=== PATIENT | female | born 1960 | race Caucasian/White ===

== ENCOUNTER 2024-07-05 17:12 | Inpatient (IN) ==
[2024-07-05 17:54] LABS: Basophils #(Absolute) Auto 0.1 (0.0-0.1); Basophils%(Percent) Auto 0.4 (0.1-0.85); Eosinophils#(Absolute)Auto 0.1 (0.0-0.2); Eosinophils%(Percent) Auto 0.8 % (0.4-2.8); Granulocytes % - Auto 86.3 % (47.8-71.3); Granulocytes#(Absolute)- Auto 12.9 (2.3-6.0); Hematocrit 45.8 % (35.9-46.7); Monocytes #(Absolute)- Auto 0.4 (1.1-3.1); Monocytes %(Percent)- Auto 2.8 % (3.6-9.8); Platelet Count 477 K/uL (152-353); White Blood Count 14.9 K/uL (4.3-9.3)
[2024-07-05 18:02] LABS: Potassium 3.2 mmol/L (3.6-5.2)
[2024-07-05] MEDS ORDERED: ONDANSETRON HCL/PF 4 MG/2 ML VIAL ONE (18:02)
[2024-07-05] MEDS ORDERED: 0.9 % SODIUM CHLORIDE 1000 ML 1,000 ML IV ONE (18:06)
[2024-07-05] MEDS: 0.9 % SODIUM CHLORIDE 1000 ML 1,000 ML IV STA (18:07)
[2024-07-05] MEDS: ONDANSETRON HCL/PF 4 MG/2 ML VIAL IVP ONE (18:07)
--- NOTE | 2024-07-05 18:17 | Emergency Department Note ---
HPI - Abdominal Pain General Chief Complaint: Abdominal Pain Stated Complaint: EPIGASTRIC PAIN Time Seen by Provider: 07/05/24 17:48 Source: patient and EMS Mode of arrival: ambulance Limitations: no limitations History of Present Illness HPI narrative: 63-year-old female presents to ER via EMS with complaint of upper abdominal and epigastric pain that radiates through to her back since midnight last night. Patient reports nausea and vomiting but denies diarrhea. MD elicited complaint: abdominal pain Pertinent past history: constipation, gastritis and past UTI Onset (ago): day(s) (1) Pain Consistency: constant Location: epigastric, LUQ and RUQ Severity: moderate Quality: cramping, aching and fullness Radiation: back Migration to: no migration Exacerbating factors: eating, vomiting and movement Relieving factors: rest Context: other (none) Associated symptoms: nausea and vomiting Treatments prior to arrival: other (none) Related Data Patient : No Patient lactating: No Home Medications Medication Instructions Recorded Confirmed temazepam 30 mg capsule 30 mg PO NIGHTLY PRN sleep 01/24/24 01/24/24 acetaminophen 300 mg-codeine 30 mg 1 tab PO Q6H PRN pain 01/25/24 01/25/24 tablet ehixznqvip-zsfatolwxriwx-ifrgqevn 1 tab PO Q6H PRN migraine headache 01/25/24 01/25/24 50 mg-325 mg-40 mg tablet cholecalciferol (vitamin D3) 1,250 50,000 unit PO Q7D 01/25/24 01/25/24 mcg (50,000 unit) capsule duloxetine 30 mg capsule,delayed 30 mg PO DAILY 01/25/24 01/25/24 release fluticasone propionate 50 1 spray intranasal DAILY 01/25/24 01/25/24 mcg/actuation nasal spray,suspension mometasone 200 mcg/actuation HFA 1 puff inhalation DAILY 01/25/24 01/25/24 aerosol inhaler (Asmanex HFA) omeprazole 40 mg capsule,delayed 40 mg PO DAILY 01/25/24 01/25/24 release primidone 50 mg tablet 50 mg PO DAILY 01/25/24 01/25/24 sertraline 100 mg tablet 100 mg PO DAILY 01/25/24 01/25/24 Allergies Allergy/AdvReac Type Severity Reaction Status Date / Time aspirin Allergy Verified 07/05/24 17:22 hydromorphone (From Dilaudid) Allergy Verified 07/05/24 17:22 Penicillins Allergy Verified 07/05/24 17:22 Review of Systems 2 Status of ROS 10 or more systems reviewed and unremark able except as noted in history and below Gastrointestinal Reports: abdominal pain, nausea, vomiting, bloating and feeling full early Musculoskeletal Reports: back pain Psychiatric Reports: anxiety PFSH PFSH Medical History Cataract Ovarian cyst Cholecystectomy planned GERD (gastroesophageal reflux disease) Migraine Tremor Unsteady gait Osteoporosis Asthma Depressed Surgical History History of delivery H/O detached retina repair H/O: hysterectomy Social History (Updated 12/22/23 @ 19:45 by Tonya Arevalo APRN) Smoking status: never smoker Within the past year, how often did you have a drink containing alcohol: never Within the past year, how often did you have six or more drinks on one occasion: never Score interpretation: A score less than 3 is consistent with normal alcohol consumption. Non-prescribed substance use: denies use What is your current living situation: I presently have a place to live Problems where you live: no known problems Highest level of school completed/degree received: high school Feel stressed/tense/nervous/anxious/difficulty sleeping: to some extent Life stressors: other (none) Life stressor details: Current medical condition Due to disability, difficulty making decisions: No Gender Identity: female Exam 2 Constitutional: normal general appearance, distress noted (moderate), abnormal body habitus (overweight), no limitations and alert Vital Signs - 24 hr 07/05/24 17:12 07/05/24 17:30 07/05/24 18:05 Temperature 97 F L Pulse Rate 102 H 94 H 95 H Respiratory Rate 18 18 18 Blood Pressure 118/60 117/60 100/70 Pulse Oximetry 99 99 99 Oxygen Delivery Me thod Room Air Room Air Room Air 07/05/24 18:31 07/05/24 19:00 07/05/24 19:31 Temperature Pulse Rate 82 86 84 Respiratory Rate 18 18 18 Blood Pressure 127/62 122/65 107/56 Pulse Oximetry 99 99 99 Oxygen Delivery Me thod Room Air Room Air Room Air HENMT: normocephalic, head/scalp atraumatic, hearing grossly normal bilaterally, external ears normal, external nose normal, oral mucous membranes normal, oropharynx normal, dentition normal and gingiva normal Eyes: PERRL, EOMs intact bilaterally, conjunctivae normal, no scleral icterus, no papilledema, normal visual rocha by confrontation, alignment normal, periorbital findings normal and no nystagmus Neck/C-Spine: visual inspection normal, trachea midline, cervical spine nontender, cervical full ROM noted and supple Lymph: no lymphadenopathy noted and no lymphedema noted Chest: inspection of chest normal, inspection of breast(s) abnormal (deferred) and palpation of breast(s) abnormal (deferred) Respiratory: breath sounds equal bilaterally, normal respiratory effort, clear to auscultation bilaterally, no wheezes, no rales, no retractions and no use of accessory muscles Cardiovascular: normal heart rate noted, regular rhythm noted, no gallop, no JVD, peripheral pulses 2+ throughout and no additional abnormal heart sounds Gastrointestinal: abdomen normal to inspection, abdomen soft to palpation, tender to palpation (moderate), (epigastric), (LUQ) and (RUQ), distended (mild distention), normoactive bowel sounds, no hepatosplenomegaly, no masses, no pulsatile mass, no ascites and rectal exam abnormal (deferred) Genitourinary: no CVA tenderness, bladder normal to palpation, vaginal abnormality noted (deferred) and cervical abnormality noted (deferred) Back/Pelvis: spine normal to inspection Extremities: normal to inspection, normal to palpation, no tenderness, full ROM, no joint enlargement and no deformity 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, no movement abnormality noted, no focal motor deficit noted, no sensory deficits noted, gait abnormality noted (unable to access), speech normal, coordination normal, no pronator drift noted, no fasciculations noted and GCS normal Psychiatry: Mental Status Exam documented within this Exam's Psych section mental status grossly normal, oriented x3, thought process normal, cooperative, affect normal, psychomotor activity normal and memory normal Feel stressed/tense/nervous/anxious/difficulty sleeping: to some extent Life stressors: other (none) Life stressor details: Current medical condition Due to disability, difficulty making decisions: No Skin: skin color normal, no rash, no lesions, no ecchymosis noted, no wounds, no lacerations, skin turgor normal, no jaundice, no petechiae, no mottling, nails normal and no alopecia Image: Body (4 view): 1. Pain Course Course Hospital Course: 63-year-old female presents to ER with complaint of upper abdominal pain epigastric pain since midnight last night via EMS has been evaluated by physical exam, CBC, CMP, magnesium, lipase, Troponin, urinalysis, CT scan of the abdomen pelvis with contrast, and plain film chest x-ray. Patient's lab work reveals leukocytosis with a white blood cell count of 14.9, hyponatremia with a sodium of 134, hypokalemia with a potassium of 3.2, hypercalcemia with a calcium of 10.7, hyperglycemia with a glucose of 180, and dehydration with elevated BUN/creatinine. Patient's CT of the abdomen and pelvis with contrast reveals a small bowel obstruction that is mild to intermediate and appears to be secondary to adhesions, chest x-ray reveals no acute cardiopulmonary process. Patient has had a NG tube placed with confirmation of placement by plain film chest x-ray, patient reports a relief in pain since NG tube has been placed. Patient will be admitted to the [facility] floor for observation and ongoing treatment of her small bowel obstruction, patient will be n.p.o. with fluid resuscitation and electrolyte replacement as necessary, pain management as needed, and nausea and vomiting control. Patient has been advised of admission status and has agreed with treatment plan. Vital Signs Vital signs: Vital Signs Temperature 97 F L 07/05/24 17:12 Pulse Rate 102 H 07/05/24 17:12 Respiratory Rate 18 07/05/24 17:12 Blood Pressure 118/60 07/05/24 17:12 Pulse Oximetry 99 07/05/24 17:12 Oxygen Delivery Method Room Air 07/05/24 17:12 Temperature 98.4 F 07/06/24 04:00 Pulse Rate 88 07/06/24 04:00 Respiratory Rate 17 07/06/24 04:00 Blood Pressure 124/64 07/06/24 04:00 Pulse Oximetry 95 07/06/24 04:00 Oxygen Delivery Method Room Air 07/06/24 04:00 MDM - Abdominal Pain MDM Narrative Medical decision making narrative: Medical Decision Making this patient involved physical exam, CBC, CMP, urinalysis, amylase, lipase, magnesium, troponin, EKG, plain film chest x-ray, tube confirmation x-ray, and CT of the abdomen pelvis with contrast. Differential Diagnosis Differential diagnosis: Likely abdominal pain, constipation, diverticulitis, gastroenteritis, pancreatitis and small bowel obstruction Lab Data Attestation: I reviewed the patient's lab results. Labs: Lab Results 07/05/24 Range/Units 17:40 WBC 14.9 H (4.3-9.3) K/uL RBC 5.2 (4.00-5.50) M/uL Hgb 15.5 (12.5-15.8) gm/dL Hct 45.8 (35.9-46.7) % MCV 88.0 (81.0-93.7) fl MCH 29.8 (27.6-32.2) pg MCHC 33.9 (33.1-35.3) g/dl RDW 14.0 (11.4-14.2) % Plt Count 477 H (152-353) K/uL MPV 7.8 (6.9-10.8) fl Gran % 86.3 H (47.8-71.3) % Lymph % (Auto) 9.7 L (20.0-43.0) % [place] % (Auto) 2.8 L (3.6-9.8) % Eos % (Auto) 0.8 (0.4-2.8) % Baso % (Auto) 0.4 (0.1-0.85) Lymph # (Auto) 1.4 (1.1-3.1) [place] # (Auto) 0.4 L (1.1-3.1) Eos # (Auto) 0.1 (0.0-0.2) Baso # (Auto) 0.1 (0.0-0.1) Absolute Gran (auto) 12.9 H (2.3-6.0) Sodium 135 L (136-145) mmol/L Potassium 3.2 L (3.6-5.2) mmol/L Chloride 95.0 L (98-107) mmol/L Carbon Dioxide 23 (21-32) mmol/L Anion Gap 17.0 H (4-14) mEq/L BUN 17 (7-18) mg/dL Creatinine 1.5 H (0.6-1.3) mg/dL Estimated GFR 38.9 (>59.9) Glucose 180 H (70-110) mg/dL Calcium 10.7 H (8.5-10.1) mg/dL Total Bilirubin 0.55 (0.0-1.0) mg/dL AST 15 (15-37) U/L ALT 17 L (30-65) U/L Alkaline Phosphatase 85 (50-136) U/L Troponin I High Sens 14.20 (4.0-60.4) ng/L Total Protein 8.4 H (6.4-8.2) g/dL Albumin 4.2 (3.4-5.0) g/dL Amylase 44 (25-115) U/L Lipase 19.0 (16.0-77.0) U/L Imaging Data Imaging ordered: Chest x-ray and CT scan - abdomen Attestation: I have reviewed the pertinent imaging results. Radiologist's impression: EXAM: CHEST HISTORY: CHEST PAINCHEST PAIN; COMPARISON: None. TECHNIQUE: Frontal view of the chest was submitted for interpretation. FINDINGS: The cardiomediastinal silhouette is within normal limits. Lungs show no focal consolidation, pneumothorax, or pleural fluid. IMPRESSION: No acute cardiopulmonary process. THIS IS AN ELECTRONICALLY VERIFIED FINAL REPORT 07/05/2024 7:41 PM - Electronically signed by Tod Marie MD EXAM: CT ABDOMEN PELVIS W CON HISTORY: Upper abd painUpper abd pain; Extravasation did occur. ER was notified. COMPARISON: CT lumbar spine from December 22, 2023 TECHNIQUE: Axial CT images of the abdomen and pelvis were obtained after the administration of IV contrast and reformatted into coronal and sagittal planes for further evaluation. Radiation dose: 839.6 mGy-cm total DLP FINDINGS: Lung bases are clear. Stomach appears normal. Solid visceral organs of the upper abdomen are unremarkable. Status post cholecystectomy with pneumobilia in the left hepatic lobe. Left renal cysts. Otherwise, unremarkable appearance of the kidneys and ureters. Unremarkable appearance of the urinary bladder. Status post hysterectomy. Multiple loops of moderately distended fluid-filled small bowel in the upper abdomen. Transition from dilated to decompressed small bowel in the left mid abdomen as seen on axial images 50-60. Remainder of the small bowel is decompressed. Unremarkable appearance of the decompressed large bowel. No evidence of acute appendicitis. No pneumoperitoneum. No significant fluid collection. No adenopathy. No acute osseous abnormality. Chronic pars defects at L5 with grade 1 anterolisthesis. Severe degenerative disc disease at L5-S1. Status post vertebroplasty at L1. IMPRESSION: Mild to intermediate grade mechanical small bowel obstruction which occurs in the left mid abdomen; likely secondary to adhesions. THIS IS AN ELECTRONICALLY VERIFIED FINAL REPORT 07/05/2024 7:20 PM - Electronically signed by Michael Zhang MD ECG Data Attestation: I have reviewed the pertinent ECG results. Interpretation: Sinus rhythm rate 91 Short IN interval RR 654 IN 90 P axis -61 QRS -5 T 45 Discharge Plan Discharge Patient Disposition: Admitted As Observation Condition: Stable Clinical Impression: Small bowel obstruction, Abdominal pain, Dehydration, Hypokalemia, Hyponatremia, Hypercalcemia, Hyperglycemia Interventions: ED Discharge Assessment Last Done: 07/05/24 21:30 ED Discharge Vital Sign Last Done: 07/05/24 21:30 Emergency Department Charge Sheet Last Done: 07/05/24 21:50 Time of Disposition: 20:30 Discharge Date/Time: 07/05/24 21:30
[2024-07-05] MEDS ORDERED: ACETAMINOPHEN 1000 MG/100 ML 1,000 MG/100 ML IV.SOLN IV PRN (20:59)
[2024-07-05] MEDS: CIPROFLOXACIN 400 MG/200ML-D5W 400 MG/200 ML PIGGYBACK IV SCH (23:23)
[2024-07-05] MEDS: KETOROLAC 30 MG/ML INJ VIAL IVP PRN (23:23)
[2024-07-05] MEDS: MEPERIDINE HCL/PF 25 MG/ML SYRINGE IVP PRN (23:35)
[2024-07-05] MEDS: ONDANSETRON HCL/PF 4 MG/2 ML VIAL INJ PRN (23:36)
[2024-07-05] MEDS: diphenhydrAMINE HCL 50 MG/ML VIAL ONE (23:55)
[2024-07-06] MEDS: POTASSIUM CHLORIDE IV SCH (01:59)
[2024-07-06] MEDS: [UNRECOGNIZED DRUG - OTHER] IV SCH (01:59)
[2024-07-06] MEDS: diphenhydrAMINE HCL 50 MG/ML VIAL INJ ONE (02:03)
[2024-07-06 05:52] LABS: Basophils #(Absolute) Auto 0.1 (0.0-0.1); Basophils%(Percent) Auto 0.5 (0.1-0.85); Eosinophils%(Percent) Auto 0.2 % (0.4-2.8); Granulocytes % - Auto 75.5 % (47.8-71.3); Granulocytes#(Absolute)- Auto 9.5 (2.3-6.0); Mean Corpuscular Volume 88.4 fl (81.0-93.7); Monocytes #(Absolute)- Auto 1.2 (1.1-3.1); Monocytes %(Percent)- Auto 9.3 % (3.6-9.8); Platelet Count 431 K/uL (152-353); White Blood Count 12.5 K/uL (4.3-9.3)
[2024-07-06 05:55] LABS: Specific Gravity Urine 1.015 (1.001-1.035); Urine Appearance CLEAR (CLEAR); Urine Blood NEGATIVE (NEG - TRACE); Urine Color AMBER (STRAW/YELL.); Urine Urobilinogen Normal (NORMAL)
[2024-07-06 06:27] LABS: Potassium 3.4 mmol/L (3.6-5.2)
[2024-07-06] MEDS: PANTOPRAZOLE SODIUM 40 MG VIAL IVP SCH (08:10)
[2024-07-06] MEDS: diphenhydrAMINE HCL 25 MG CAP PO ONE (09:36)
[2024-07-06] MEDS: CIPROFLOXACIN 400 MG/200ML-D5W 400 MG/200 ML PIGGYBACK IV SCH (09:36)
--- NOTE | 2024-07-06 10:03 | History & Physical Report ---
H&P: HPI History of Present Illness Chief complaint: SMALL BOWEL OBSTRUCTION,LEUKOCYTOSIS,HYPOKALEMIA,H Narrative: Patient is pleasant 63 year old female here for nausea, vomiting, and epigastric pain that radiates to back for [address] abd revealed small bowel obstruction. She has NGT which is returning green contents. She reports relief of pain and nausea today. Denies passing gas or bowel movement. Denies any hematemesis, hematuria, no heamtochezia or melena. No fever, chills, night sweats, headache s, dizziness, or blurred vision, no chest pain, cough or sob. No diarrhea. Review of Systems Status of ROS 10 or more systems reviewed and unremark able except as noted in history and below Gastrointestinal Reports: abdominal pain, nausea, vomiting, bloating and feeling full early Musculoskeletal Reports: back pain Psychiatric Reports: anxiety [facility] Medical History (Updated 07/06/24 @ 10:12 by Estephania Alvarez NP) Nausea & vomiting Hypomagnesemia Hypokalemia Cataract Ovarian cyst Cholecystectomy planned GERD (gastroesophageal reflux disease) Migraine Tremor Unsteady gait Osteoporosis Asthma Depressed Surgical History History of delivery H/O detached retina repair H/O: hysterectomy Social History Smoking status: never smoker Within the past year, how often did you have a drink containing alcohol: never Within the past year, how often did you have six or more drinks on one occasion: never Score interpretation: A score less than 3 is consistent with normal alcohol consumption. Non-prescribed substance use: denies use What is your current living situation: I presently have a place to live Problems where you live: no known problems Highest level of school completed/degree received: high school Feel stressed/tense/nervous/anxious/difficulty sleeping: to some extent Life stressors: other (none) Life stressor details: Current medical condition Due to disability, difficulty making decisions: No Gender Identity: female Meds Home Medications and Allergies Home Medications Medication Instructions Recorded Confirmed Type temazepam 30 mg capsule 30 mg PO NIGHTLY PRN sleep 01/24/24 01/24/24 History acetaminophen 300 mg-codeine 30 mg 1 tab PO Q6H PRN pain 01/25/24 01/25/24 History tablet kpnlieuhzw-fkndeoqqvbhuj-rxkckqxz 1 tab PO Q6H PRN migraine headache 01/25/24 01/25/24 History 50 mg-325 mg-40 mg tablet cholecalciferol (vitamin D3) 1,250 50,000 unit PO Q7D 01/25/24 01/25/24 History mcg (50,000 unit) capsule duloxetine 30 mg capsule,delayed 30 mg PO DAILY 01/25/24 01/25/24 History release fluticasone propionate 50 1 spray intranasal DAILY 01/25/24 01/25/24 History mcg/actuation nasal spray,suspension mometasone 200 mcg/actuation HFA 1 puff inhalation DAILY 01/25/24 01/25/24 History aerosol inhaler (Asmanex HFA) omeprazole 40 mg capsule,delayed 40 mg PO DAILY 01/25/24 01/25/24 History release primidone 50 mg tablet 50 mg PO DAILY 01/25/24 01/25/24 History sertraline 100 mg tablet 100 mg PO DAILY 01/25/24 01/25/24 History Allergies Allergy/AdvReac Type Severity Reaction Status Date / Time aspirin Allergy Verified 07/05/24 17:22 hydromorphone (From Dilaudid) Allergy Verified 07/05/24 17:22 Penicillins Allergy Verified 07/05/24 17:22 ciprofloxacin (From Cipro) AdvReac Mild Redness of Verified 07/06/24 06:11 Skin meperidine (From Demerol) AdvReac Mild ITCHING Verified 07/06/24 06:11 Exam Constitutional: normal general appearance, no apparent distress, average body habitus, no limitations and alert Vital Signs - 24 hr 07/05/24 17:12 07/05/24 17:30 07/05/24 18:05 Temperature 97 F L Pulse Rate 102 H 94 H 95 H Pulse Rate [Brachi al] Respiratory Rate 18 18 18 Blood Pressure 118/60 117/60 100/70 Blood Pressure [Le ft Arm] Pulse Oximetry 99 99 99 Oxygen Delivery Me thod Room Air Room Air Room Air 07/05/24 18:31 07/05/24 19:00 07/05/24 19:31 Temperature Pulse Rate 82 86 84 Pulse Rate [Brachi al] Respiratory Rate 18 18 18 Blood Pressure 127/62 122/65 107/56 Blood Pressure [Le ft Arm] Pulse Oximetry 99 99 99 Oxygen Delivery Me thod Room Air Room Air Room Air 07/05/24 21:30 07/05/24 22:17 07/05/24 23:47 Temperature 97 F L 98.4 F 97.8 F Pulse Rate 84 Pulse Rate [Brachi al] 86 85 Respiratory Rate 18 17 17 Blood Pressure 107/56 Blood Pressure [Le ft Arm] 131/64 128/71 Pulse Oximetry 99 99 100 Oxygen Delivery Me thod Room Air Room Air 07/06/24 04:00 07/06/24 08:00 Temperature 98.4 F 98.5 F Pulse Rate Pulse Rate [Brachi al] 88 91 H Respiratory Rate 17 19 Blood Pressure Blood Pressure [Le ft Arm] 124/64 106/51 Pulse Oximetry 95 95 Oxygen Delivery Me thod Room Air Room Air HENMT: normocephalic and head/scalp atraumatic Eyes: EOMs intact bilaterally, conjunctivae normal and no scleral icterus Neck/C-Spine: visual inspection normal and trachea midline Lymph: no lymphadenopathy noted and no lymphedema noted Chest: inspection of chest normal Respiratory: breath sounds equal bilaterally, normal respiratory effort, clear to auscultation bilaterally, no wheezes, no rales, no use of accessory muscles and chest percussion normal Cardiovascular: normal heart rate noted, regular rhythm noted, no gallop, no rub, no murmur and no JVD Gastrointestinal: abdomen normal to inspection, abdomen soft to palpation, normoactive bowel sounds (no bowel sounds auscultated) and no ascites Genitourinary: deferred Back/Pelvis: spine normal to inspection Extremities: normal to inspection, normal to palpation, no tenderness and full ROM Neurology: no movement abnormality noted and speech normal Psychiatry: mental status grossly normal, oriented x3, thought process normal, cooperative and affect normal Skin: skin color normal, no rash and no lesions Assessment and Plan Assessment and Plan (1) Small bowel obstruction: Code(s): K56.609 - Unspecified intestinal obstruction, unspecified as to partial versus complete obstruction (2) Pain: Code(s): R52 - Pain, unspecified (3) Tremor: Code(s): R25.1 - Tremor, unspecified (4) Nausea & vomiting: Qualifiers: Vomiting type: unspecified Qualified Code(s): R11.2 - Nausea with vomiting, unspecified Code(s): R11.2 - Nausea with vomiting, unspecified Plan Continue NGT to CHILEL NPO NS @ 125/hr I&O's to monitor urine output May need surgical consult if no gas or stool passage in next 48 hours. HOLD PO meds for now. PRN Meds: Morphine Tylenol Ketorolac Zofran Protonix Promethazine Results Labs Labs: CBC 07/05/24 07/06/24 Range/Units 17:40 05:30 WBC 14.9 H 12.5 H (4.3-9.3) K/uL RBC 5.2 5.0 (4.00-5.50) M/uL Hgb 15.5 14.9 (12.5-15.8) gm/dL Hct 45.8 44.0 (35.9-46.7) % Plt Count 477 H 431 H (152-353) K/uL Gran % 86.3 H 75.5 H (47.8-71.3) % Lymph % (Auto) 9.7 L 14.5 L (20.0-43.0) % [place] % (Auto) 2.8 L 9.3 (3.6-9.8) % Eos % (Auto) 0.8 0.2 L (0.4-2.8) % Baso % (Auto) 0.4 0.5 (0.1-0.85) Lymph # (Auto) 1.4 1.8 (1.1-3.1) [place] # (Auto) 0.4 L 1.2 (1.1-3.1) Eos # (Auto) 0.1 0.0 (0.0-0.2) Baso # (Auto) 0.1 0.1 (0.0-0.1) Absolute Gran (auto) 12.9 H 9.5 H (2.3-6.0) CMP 07/05/24 07/06/24 17:40 05:30 Sodium 135 L 137 Potassium 3.2 L 3.4 L Chloride 95.0 L 96.0 L Carbon Dioxide 23 28 BUN 17 25 H Creatinine 1.5 H 1.9 H Glucose 180 H 117 H Calcium 10.7 H 10.5 H Liver Function 07/05/24 07/06/24 Range/Units 17:40 05:30 Total Bilirubin 0.55 0.53 (0.0-1.0) mg/dL AST 15 16 (15-37) U/L ALT 17 L 14 L (30-65) U/L Alkaline Phosphatase 85 75 (50-136) U/L Albumin 4.2 4.1 (3.4-5.0) g/dL Urine 07/05/24 04:57 Urine Color [place] Urine Appearance Clear Ur Specific [place] 1.015 Urine Protein 1+ Urine Glucose (UA) Normal
[2024-07-06] MEDS: 0.9 % SODIUM CHLORIDE 1000 ML 1,000 ML IV SCH (19:36)
[2024-07-06] MEDS: MORPHINE SULFATE 2 MG/ML CARTRIDGE IV PRN (20:03)
[2024-07-06] MEDS: diphenhydrAMINE HCL 50 MG/ML VIAL ONE (20:21)
[2024-07-06] MEDS: PROMETHAZINE HCL 25 MG in 0.9 % SODIUM CHLORIDE 50 ML IV PRN (23:31)
[2024-07-07 05:14] LABS: Basophils%(Percent) Auto 0.3 (0.1-0.85); Eosinophils#(Absolute)Auto 0.2 (0.0-0.2); Eosinophils%(Percent) Auto 1.4 % (0.4-2.8); Granulocytes % - Auto 75.6 % (47.8-71.3); Granulocytes#(Absolute)- Auto 11.4 (2.3-6.0); Hematocrit 45.7 % (35.9-46.7); Mean Corpuscular Volume 93.6 fl (81.0-93.7); Monocytes #(Absolute)- Auto 1.4 (1.1-3.1); Monocytes %(Percent)- Auto 9.1 % (3.6-9.8); Platelet Count 388 K/uL (152-353)
--- NOTE | 2024-07-07 09:55 | Progress Note ---
Progress Note: Subjective Subjective Interval history: Patient continues to have some nausea. Continues CHILEL suction NGT. Exam Constitutional: normal general appearance, no apparent distress, average body habitus, no limitations and alert Vital Signs - 24 hr 07/06/24 11:49 07/06/24 16:00 07/06/24 20:05 Temperature 98.4 F 98.4 F 97.8 F Pulse Rate [Brachi al] 73 95 H 88 Respiratory Rate 19 19 18 Blood Pressure [Le ft Arm] 116/63 120/76 119/45 Pulse Oximetry 95 93 L 93 L Oxygen Delivery Me thod Room Air Room Air Room Air 07/06/24 23:49 07/07/24 03:42 07/07/24 08:00 Temperature 98.5 F 97.9 F 98.1 F Pulse Rate [Brachi al] 93 H 80 88 Respiratory Rate 18 18 19 Blood Pressure [Le ft Arm] 122/71 93/50 134/62 Pulse Oximetry 96 95 95 Oxygen Delivery Me thod Room Air Room Air Room Air HENMT: normocephalic, head/scalp atraumatic, hearing grossly normal bilaterally, external ears normal, external nose normal, oral mucous membranes normal, oropharynx normal, dentition normal and gingiva normal Eyes: PERRL, EOMs intact bilaterally, conjunctivae normal, no scleral icterus, no papilledema, normal visual rocha by confrontation, alignment normal, periorbital findings normal and no nystagmus Neck/C-Spine: visual inspection normal, trachea midline, cervical spine nonte nder, cervical full ROM noted and supple Lymph: no lymphadenopathy noted and no lymphedema noted Chest: inspection of chest normal, inspection of breast(s) abnormal (deferred) and palpation of breast(s) abnormal (deferred) Respiratory: breath sounds equal bilaterally, normal respiratory effort, clear to auscultation bilaterally, no wheezes, no rales, no retractions, no use of accessory muscles and chest percussion normal Cardiovascular: normal heart rate noted, regular rhythm noted, no gallop, no rub, no murmur, no JVD, peripheral pulses 2+ throughout and no additional abnormal heart sounds Gastrointestinal: abdomen normal to inspection, abdomen soft to palpation, tender to palpation (moderate), (epigastric), (LUQ) and (RUQ), distended (mild distention), normoactive bowel sounds (hypoactive BS), no hepatosplenomegaly, no masses, no pulsatile mass, no ascites and rectal exam abnormal (deferred) Genitourinary: no CVA tenderness, bladder normal to palpation, vaginal abnormality noted (deferred) and cervical abnormality noted (deferred) deferred Back/Pelvis: spine normal to inspection Extremities: normal to inspection, normal to palpation, no tenderness, full ROM, no joint enlargement and no deformity 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, no movement abnormality noted, no focal motor deficit noted, no sensory deficits noted, gait abnormality noted (unable to access), speech normal, coordination normal, no pronator drift noted, no fasciculations noted and GCS normal Psychiatry: Mental Status Exam documented within this Exam's Psych section mental status grossly normal, oriented x3, thought process normal, cooperative, affect normal, psychomotor activity normal and memory normal Skin: skin color normal, no rash, no lesions, no ecchymosis noted, no wounds, no lacerations, skin turgor normal, no jaundice, no petechiae, no mottling, nails normal and no alopecia Progress Note: Objective Labs Labs: CBC 07/07/24 Range/Units 04:58 WBC 15.0 H (4.3-9.3) K/uL RBC 4.9 (4.00-5.50) M/uL Hgb 14.6 (12.5-15.8) gm/dL Hct 45.7 (35.9-46.7) % Plt Count 388 H (152-353) K/uL Gran % 75.6 H (47.8-71.3) % Lymph % (Auto) 13.6 L (20.0-43.0) % [place] % (Auto) 9.1 (3.6-9.8) % Eos % (Auto) 1.4 (0.4-2.8) % Baso % (Auto) 0.3 (0.1-0.85) Lymph # (Auto) 2.0 (1.1-3.1) [place] # (Auto) 1.4 (1.1-3.1) Eos # (Auto) 0.2 (0.0-0.2) Baso # (Auto) 0.0 (0.0-0.1) Absolute Gran (auto) 11.4 H (2.3-6.0) Urine 07/05/24 04:57 Urine Color Nolvia Urine Appearance Clear Ur Specific [place] 1.015 Urine Protein 1+ Urine Glucose (UA) Normal Progress Note: A&P Assessment and Plan (1) Small bowel obstruction: (2) Pain: (3) Tremor: (4) Nausea & vomiting: Qualifiers: Vomiting type: unspecified Qualified Code(s): R11.2 - Nausea with vomiting, unspecified Plan Continue NGT to CHILEL NPO IVF I&O's to monitor urine output May need surgical consult if no gas or stool passage in next 48 hours. HOLD PO meds for now. PRN Meds: Morphine Tylenol Ketorolac Zofran Protonix Promethazine Fall Risk Details Parmar Fall Scale Risk Level: Moderate Fall Risk Current Medications: Current Medications Acetaminophen (Acetaminophen 1000 Mg/100 Ml) 1,000 mg in 100 mls @ 400 mls/hr IV Q6H PRN PRN Reason: Pain Promethazine HCl 25 mg/ Sodium (Chloride) 51 mls @ 200 mls/hr IV Q8H PRN PRN Reason: Nausea And Vomiting Last Infusion: 07/07/24 00:33 Dose: Infused Potassium Chloride/Sodium Chloride (Potassium Cl 20 Meq/1,000ml-Ns) 20 meq in 1,000 mls @ 83 mls/hr IV CONT [facility] Last Admin: 07/07/24 00:42 Dose: 83 mls/hr Ketorolac Tromethamine (Ketorolac 30 Mg/Ml Inj Vial) 15 mg IVP Q6H PRN PRN Reason: Moderate Pain SCALE 5-7 Stop: 07/10/24 20:58 Last Admin: 07/07/24 08:44 Dose: 15 mg Morphine Sulfate (Morphine Sulfate 2 Mg/Ml Cartridge) 2 mg IV Q4H PRN PRN Reason: Severe Pain SCALE 8-10 Last Admin: 07/07/24 03:03 Dose: 2 mg Ondansetron HCl (Ondansetron Hcl/Pf 4 Mg/2 Ml Vial) 4 mg INJ Q6H PRN PRN Reason: Nausea And Vomiting Last Admin: 07/06/24 20:03 Dose: 4 mg Pantoprazole Sodium (Pantoprazole Sodium 40 Mg Vial) 40 mg IVP DAILY [facility] Last Admin: 07/07/24 08:44 Dose: 40 mg Time Spent With Patient Time: Total time spent is greater than 50% in coordination of care (as documented) at patient's floor/unit and/or counseling patient:40 Time with patient: greater than 35 minutes
[2024-07-07] MEDS: diphenhydrAMINE HCL 50 MG/ML VIAL INJ ONE (15:51)
[2024-07-07] MEDS: DEXTROSE 50 % 25 GM/50 ML SYRINGE INJ ONE ×2 (20:21→20:25)
[2024-07-07] MEDS ORDERED: MORPHINE SULFATE 2 MG/ML CARTRIDGE IV ONE (20:46)
[2024-07-08 05:18] LABS: Basophils #(Absolute) Auto 0.1 (0.0-0.1); Basophils%(Percent) Auto 0.4 (0.1-0.85); Eosinophils#(Absolute)Auto 0.3 (0.0-0.2); Eosinophils%(Percent) Auto 2.6 % (0.4-2.8); Granulocytes#(Absolute)- Auto 10.3 (2.3-6.0); Hematocrit 38.1 % (35.9-46.7); Mean Corpuscular Volume 91.2 fl (81.0-93.7); Monocytes #(Absolute)- Auto 1.2 (1.1-3.1); Monocytes %(Percent)- Auto 9.4 % (3.6-9.8); Platelet Count 264 K/uL (152-353); White Blood Count 13.1 K/uL (4.3-9.3)
[2024-07-08] MEDS: LORazepam 2 MG/ML VIAL IVP ONE (07:06)
[2024-07-08 08:03] LABS: Potassium 4.4 mmol/L (3.6-5.2)
[2024-07-08] MEDS ORDERED: 0.9 % SODIUM CHLORIDE 1000 ML 1,000 ML IV SCH (09:00)
[2024-07-08] MEDS: DEXTROSE 5 %-0.45 % SOD CHLORD 1,000 ML IV SCH (09:49)
[2024-07-08] MEDS: METOCLOPRAMIDE HCL 5 MG in 0.9 % SODIUM CHLORIDE 50 ML IVP SCH (09:50)
[2024-07-08] MEDS ORDERED: MORPHINE SULFATE 2 MG/ML CARTRIDGE IV PRN ×2 (10:00)
--- NOTE | 2024-07-08 10:19 | Progress Note ---
Progress Note: Subjective Subjective Interval history: Ms. Arias is doing better today. Abdominal pain is minimal to nothing but she has not passed gas or stool. She does have significant amount in her NGT. Vitals have been stable glucose has dropped into the 60s several times in the last 24hrs. WBC still elevated 13.1. Exam Constitutional: normal general appearance, no apparent distress, average body habitus, no limitations and alert Vital Signs - 24 hr 07/07/24 11:37 07/07/24 16:23 07/07/24 19:54 Temperature 98.2 F 98.4 F 97.9 F Pulse Rate [Brachi al] 85 74 92 H Respiratory Rate 17 18 17 Blood Pressure [Le ft Arm] 113/71 119/72 148/59 Pulse Oximetry 96 100 92 L Oxygen Delivery Me thod Room Air Room Air Room Air 07/07/24 23:41 07/08/24 03:50 07/08/24 08:01 Temperature 98.1 F 98.8 F 98.8 F Pulse Rate [Brachi al] 90 91 H 89 Respiratory Rate 18 18 19 Blood Pressure [Le ft Arm] 125/58 141/70 98/66 Pulse Oximetry 97 96 96 Oxygen Delivery Me thod Room Air Room Air Room Air HENMT: normocephalic, head/scalp atraumatic, hearing grossly normal bilaterally, external ears normal, external nose normal, oral mucous membranes normal, oropharynx normal, dentition normal and gingiva normal Eyes: PERRL, EOMs intact bilaterally, conjunctivae normal, no scleral icterus, no papilledema, normal visual rocha by confrontation, alignment normal, periorbital findings normal and no nystagmus Neck/C-Spine: visual inspection normal, trachea midline, cervical spine nontender, cervical full ROM noted and supple Lymph: no lymphadenopathy noted and no lymphedema noted Chest: inspection of chest normal, inspection of breast(s) abnormal (deferred) and palpation of breast(s) abnormal (deferred) Respiratory: breath sounds equal bilaterally, normal respiratory effort, clear to auscultation bilaterally, no wheezes, no rales, no retractions, no use of accessory muscles and chest percussion normal Cardiovascular: normal heart rate noted, regular rhythm noted, no gallop, no rub, no murmur, no JVD, peripheral pulses 2+ throughout and no additional abnormal heart sounds Gastrointestinal: abdomen normal to inspection, abdomen soft to palpation, nontender to palpation, nondistended (mild distention), normoactive bowel sounds (hypoactive BS), no hepatosplenomegaly, no masses, no pulsatile mass, no ascites and normal rectal exam (deferred) Genitourinary: no CVA tenderness, bladder normal to palpation, vaginal abnormality noted (deferred) and cervical abnormality noted (deferred) deferred Back/Pelvis: spine normal to inspection Extremities: normal to inspection, normal to palpation, no tenderness, full ROM, no joint enlargement and no deformity 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, no movement abnormality noted, no focal motor deficit noted, no sensory deficits noted, gait normal, speech normal, coordination normal, no pronator drift noted, no fasciculations noted and GCS normal Psychiatry: Mental Status Exam documented within this Exam's Psych section mental status grossly normal, oriented x3, thought process normal, cooperative, affect normal, psychomotor activity normal and memory normal Skin: skin color normal, no rash, no lesions, no ecchymosis noted, no wounds, no lacerations, skin turgor normal, no jaundice, no petechiae, no mottling, nails normal and no alopecia Progress Note: Objective Labs Labs: CBC 07/08/24 Range/Units 04:40 WBC 13.1 H (4.3-9.3) K/uL RBC 4.2 (4.00-5.50) M/uL Hgb 12.2 L (12.5-15.8) gm/dL Hct 38.1 (35.9-46.7) % Plt Count 264 (152-353) K/uL Gran % 78.0 H (47.8-71.3) % Lymph % (Auto) 9.6 L (20.0-43.0) % [place] % (Auto) 9.4 (3.6-9.8) % Eos % (Auto) 2.6 (0.4-2.8) % Baso % (Auto) 0.4 (0.1-0.85) Lymph # (Auto) 1.3 (1.1-3.1) [place] # (Auto) 1.2 (1.1-3.1) Eos # (Auto) 0.3 H (0.0-0.2) Baso # (Auto) 0.1 (0.0-0.1) Absolute Gran (auto) 10.3 H (2.3-6.0) CMP 07/08/24 04:40 Sodium 146 H Potassium 4.4 Chloride 109.0 H Carbon Dioxide 25 BUN 31 H Creatinine 1.0 Glucose 71 Calcium 8.7 Liver Function 07/08/24 Range/Units 04:40 Total Bilirubin 0.49 (0.0-1.0) mg/dL AST 21 (15-37) U/L ALT 13 L (30-65) U/L Alkaline Phosphatase 48 L (50-136) U/L Albumin 3.0 L (3.4-5.0) g/dL Urine 07/05/24 04:57 Urine Color Nolvia Urine Appearance Clear Ur Specific [place] 1.015 Urine Protein 1+ Urine Glucose (UA) Normal Imaging Abdominal x-ray: Radiologist's impression: [place] [address] XRay Report Signed Patient: Alma Rosa Arias MR#: [id number] : 1960 Acct:[id number] Age/Sex: 63 / F ADM Date: 07/05/24 Loc: [place] 1109-[address]: Estephania Alvarez NP Ordering Physician: Lance Delaney NP Date of Service: 07/08/24 Procedure(s): XR KUB Accession Number(s): [id number] cc: Estephania Alvarez NP; Lance Delaney NP~ EXAM: KUB HISTORY: Follow-up SBO COMPARISON: CT abdomen 07/05/2024 FINDINGS: Supine views of abdomen are technically limited; abdominal/intestinal detail is suboptimal. There is no obvious intestinal dilatation, mass, calcification or visceral enlargement. Tip of the nasogastric tube is in the right upper quadrant. IMPRESSION: No significant ileus or intestinal obstruction demonstrated although see above technical limitation. Repeat examination is recommended if symptoms warrant. THIS IS AN ELECTRONICALLY VERIFIED FINAL REPORT 07/08/2024 1:20 PM - Electronically signed by En Ansari MD Dictated By: En Ansari MD Signed By: 07/08/24 1320 DD/ 0734 TD/TT: 07/08/24 0839 Medicare Compliance Auditor: Progress Note: A&P Assessment and Plan (1) Small bowel obstruction: (2) Pain: (3) Tremor: (4) Nausea & vomiting: Qualifiers: Vomiting type: unspecified Qualified Code(s): R11.2 - Nausea with vomiting, unspecified Plan Continue NGT to CHILEL NPO Change to D5 1/2NS @100ml/hr KUB today HOLD PO meds for now. CBC BMP daily Levofloacin 750mg IV qday Flagyl 500mg IV q8hrs Reglan 5mg [id number] Lactulose 20gm OGT now and BID PRN Meds: Morphine Tylenol Ketorolac Zofran Protonix Promethazine Fall Risk Details Parmar Fall Scale Risk Level: Moderate Fall Risk Current Medications: Current Medications Acetaminophen (Acetaminophen 1000 Mg/100 Ml) 1,000 mg in 100 mls @ 400 mls/hr IV Q6H PRN PRN Reason: Pain Promethazine HCl 25 mg/ Sodium (Chloride) 51 mls @ 200 mls/hr IV Q8H PRN PRN Reason: Nausea And Vomiting Last Infusion: 07/07/24 23:33 Dose: Infused Dextrose/Sodium Chloride (Dextrose 5%-0.45% Nacl Iv Soln) 1,000 mls @ 100 mls/hr IV CONT CLARA Last Admin: 07/08/24 09:49 Dose: 100 mls/hr Metoclopramide HCl 5 mg/ (Sodium Chloride) 51 mls @ 200 mls/hr IVP Q6H [facility] Last Infusion: 07/08/24 10:11 Dose: Infused Ketorolac Tromethamine (Ketorolac 30 Mg/Ml Inj Vial) 15 mg IVP Q6H PRN PRN Reason: Moderate Pain SCALE 5-7 Stop: 07/10/24 20:58 Last Admin: 07/08/24 06:11 Dose: 15 mg Morphine Sulfate (Morphine Sulfate 2 Mg/Ml Cartridge) 2 mg IV Q4H PRN PRN Reason: Severe Pain SCALE 8-10 Last Admin: 07/07/24 20:51 Dose: 2 mg Ondansetron HCl (Ondansetron Hcl/Pf 4 Mg/2 Ml Vial) 4 mg INJ Q6H PRN PRN Reason: Nausea And Vomiting Last Admin: 07/07/24 15:35 Dose: 4 mg Pantoprazole Sodium (Pantoprazole Sodium 40 Mg Vial) 40 mg IVP DAILY [facility] Last Admin: 07/08/24 09:28 Dose: 40 mg Time Spent With Patient Time: Total time spent is greater than 50% in coordination of care (as documented) at patient's floor/unit and/or counseling patient:
[2024-07-08] MEDS: CIPROFLOXACIN 400 MG/200ML-D5W 400 MG/200 ML PIGGYBACK IV SCH (11:52)
[2024-07-08] MEDS: METRONIDAZOLE 500 MG/100ML-NS 500 MG/100 ML PIGGYBACK IV SCH (12:11)
[2024-07-08] MEDS: LEVOFLOXACIN/D5W 750 MG/150 ML 750 MG/150 ML PIGGYBACK IV SCH (12:55)
[2024-07-08] MEDS: LACTULOSE 20 GM/30 ML SOLUTION PO ONE (15:02)
[2024-07-08] MEDS: LACTULOSE 20 GM/30 ML SOLUTION ONE (15:12)
[2024-07-08] MEDS: LACTULOSE 20 GM/30 ML SOLUTION PO SCH (20:08)
[2024-07-08] MEDS ORDERED: ALPRAZolam 0.5 MG TABLET PO SCH (21:00)
[2024-07-08] MEDS: diphenhydrAMINE HCL 50 MG/ML VIAL INJ ONE (22:57)
[2024-07-09 04:55] LABS: Basophils%(Percent) Auto 0.3 (0.1-0.85); Eosinophils#(Absolute)Auto 0.4 (0.0-0.2); Eosinophils%(Percent) Auto 3.2 % (0.4-2.8); Granulocytes % - Auto 75.8 % (47.8-71.3); Granulocytes#(Absolute)- Auto 10.5 (2.3-6.0); Hematocrit 36.8 % (35.9-46.7); Monocytes #(Absolute)- Auto 1.3 (1.1-3.1); Monocytes %(Percent)- Auto 9.6 % (3.6-9.8); Platelet Count 279 K/uL (152-353); White Blood Count 13.8 K/uL (4.3-9.3)
[2024-07-09 05:11] LABS: Potassium 3.5 mmol/L (3.6-5.2)
[2024-07-09] MEDS ORDERED: BUTALB/ACETAMINOPHEN/CAFFEINE 1 EACH TABLET PO PRN (09:15)
[2024-07-09] MEDS ORDERED: TEMAZEPAM 15 MG CAPSULE PO PRN (09:15)
[2024-07-09] MEDS: METOCLOPRAMIDE HCL 5 MG in 0.9 % SODIUM CHLORIDE 50 ML IVP SCH (09:39)
[2024-07-09] MEDS: SERTRALINE HCL 50 MG TABLET PO SCH (10:14)
[2024-07-09] MEDS: DULOXETINE HCL 30 MG CAPSULE.DR PO SCH (10:14)
[2024-07-09] MEDS: PRIMIDONE 50 MG TABLET PO SCH (10:15)
[2024-07-09] MEDS: [UNRECOGNIZED DRUG - OTHER] INH SCH (10:15)
[2024-07-09] MEDS: MOMETASONE INH SCH (10:15)
--- NOTE | 2024-07-09 12:42 | Progress Note ---
Progress Note: Subjective Subjective Interval history: Ms. Arias is doing well this morning and did have a bowel movement last night. We will resume a diet clear liquids. WBC still remain elevated no definite cause. Vitals within normal limits. Exam Constitutional: normal general appearance, no apparent distress, average body habitus, no limitations and alert Vital Signs - 24 hr 07/08/24 16:00 07/08/24 20:00 07/09/24 00:00 Temperature 99.3 F 98.3 F 98.5 F Pulse Rate [Brachi al] 92 H 103 H 89 Respiratory Rate 19 21 20 Blood Pressure [Le ft Arm] 149/75 139/72 134/61 Pulse Oximetry 95 95 96 Oxygen Delivery Me thod Room Air Room Air Room Air 07/09/24 04:00 07/09/24 07:45 07/09/24 12:00 Temperature 98.8 F 98.9 F Pulse Rate [Brachi al] 85 87 89 Respiratory Rate 23 17 20 Blood Pressure [Le ft Arm] 143/61 131/70 122/65 Pulse Oximetry 95 96 96 Oxygen Delivery Me thod Room Air Room Air Room Air HENMT: normocephalic, head/scalp atraumatic, hearing grossly normal bilaterally, external ears normal, external nose normal, oral mucous membranes normal, oropharynx normal, dentition normal and gingiva normal Eyes: PERRL, EOMs intact bilaterally, conjunctivae normal, no scleral icterus, no papilledema, normal visual rocha by confrontation, alignment normal, periorbital findings normal and no nystagmus Neck/C-Spine: visual inspection normal, trachea midline, cervical spine nontender, cervical full ROM noted and supple Lymph: no lymphadenopathy noted and no lymphedema noted Chest: inspection of chest normal, inspection of breast(s) abnormal (deferred) and palpation of breast(s) abnormal (deferred) Respiratory: breath sounds equal bilaterally, normal respiratory effort, clear to auscultation bilaterally, no wheezes, no rales, no retractions, no use of accessory muscles and chest percussion normal Cardiovascular: normal heart rate noted, regular rhythm noted, no gallop, no rub, no murmur, no JVD, peripheral pulses 2+ throughout and no additional abnormal heart sounds Gastrointestinal: abdomen normal to inspection, abdomen soft to palpation, nontender to palpation, nontender to percussion, nondistended (mild distention), normoactive bowel sounds (hypoactive BS), no hepatosplenomegaly, no masses, no pulsatile mass, no ascites and normal rectal exam (deferred) Genitourinary: no CVA tenderness, bladder normal to palpation, vaginal abnormality noted (deferred) and cervical abnormality noted (deferred) deferred Back/Pelvis: spine normal to inspection Extremities: normal to inspection, normal to palpation, no tenderness, full ROM, no joint enlargement and no deformity 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, no movement abnormality noted, no focal motor deficit noted, no sensory deficits noted, gait normal, speech normal, coordination normal, no pronator drift noted, no fasciculations noted and GCS normal Psychiatry: Mental Status Exam documented within this Exam's Psych section mental status grossly normal, oriented x3, thought process normal, cooperative, affect normal, psychomotor activity normal and memory normal Skin: skin color normal, no rash, no lesions, no ecchymosis noted, no wounds, no lacerations, skin turgor normal, no jaundice, no petechiae, no mottling, nails normal and no alopecia Progress Note: Objective Labs Labs: CBC 07/09/24 Range/Units 04:35 WBC 13.8 H (4.3-9.3) K/uL RBC 4.1 (4.00-5.50) M/uL Hgb 12.2 L (12.5-15.8) gm/dL Hct 36.8 (35.9-46.7) % Plt Count 279 (152-353) K/uL Gran % 75.8 H (47.8-71.3) % Lymph % (Auto) 11.1 L (20.0-43.0) % [place] % (Auto) 9.6 (3.6-9.8) % Eos % (Auto) 3.2 H (0.4-2.8) % Baso % (Auto) 0.3 (0.1-0.85) Lymph # (Auto) 1.5 (1.1-3.1) [place] # (Auto) 1.3 (1.1-3.1) Eos # (Auto) 0.4 H (0.0-0.2) Baso # (Auto) 0.0 (0.0-0.1) Absolute Gran (auto) 10.5 H (2.3-6.0) CMP 07/09/24 04:35 Sodium 144 Potassium 3.5 L Chloride 106.0 Carbon Dioxide 28 BUN 22 H Creatinine 0.9 Glucose 100 Calcium 8.9 Liver Function 07/09/24 Range/Units 04:35 Total Bilirubin 0.83 (0.0-1.0) mg/dL AST 37 (15-37) U/L ALT 27 L (30-65) U/L Alkaline Phosphatase 56 (50-136) U/L Albumin 2.9 L (3.4-5.0) g/dL Urine 07/05/24 04:57 Urine Color Nolvia Urine Appearance Clear Ur Specific [place] 1.015 Urine Protein 1+ Urine Glucose (UA) Normal Imaging Abdominal x-ray: Radiologist's impression: [place] [address] XRay Report Signed Patient: Alma Rosa Arias MR#: [id number] : 1960 Acct:[id number] Age/Sex: 63 / F ADM Date: 07/05/24 Loc: [place] 1109-[address]: Estephania Alvarez NP Ordering Physician: Lance Delaney NP Date of Service: 07/08/24 Procedure(s): XR KUB Accession Number(s): [id number] cc: Estephania Alvarez NP; Lance Delaney NP~ EXAM: KUB HISTORY: Follow-up SBO COMPARISON: CT abdomen 07/05/2024 FINDINGS: Supine views of abdomen are technically limited; abdominal/intestinal detail is suboptimal. There is no obvious intestinal dilatation, mass, calcification or visceral enlargement. Tip of the nasogastric tube is in the right upper quadrant. IMPRESSION: No significant ileus or intestinal obstruction demonstrated although see above technical limitation. Repeat examination is recommended if symptoms warrant. THIS IS AN ELECTRONICALLY VERIFIED FINAL REPORT 07/08/2024 1:20 PM - Electronically signed by En Ansari MD Dictated By: En Ansari MD Signed By: 07/08/24 1320 DD/ 0734 TD/TT: 07/08/24 5702 Measurement Psychologist: Progress Note: A&P Assessment and Plan (1) Small bowel obstruction: (2) Pain: (3) Tremor: (4) Nausea & vomiting: Qualifiers: Vomiting type: unspecified Qualified Code(s): R11.2 - Nausea with vomiting, unspecified Plan D/C NGT Advance diet to clears then full Change to D5 1/2NS @100ml/hr Resume PO meds CBC BMP daily Levofloacin 750mg IV qday Flagyl 500mg IV q8hrs Reglan 5mg [id number] D/C Lactulose 20g BID PRN Meds: Morphine Tylenol Ketorolac Zofran Protonix Promethazine Fall Risk Details Parmar Fall Scale Risk Level: Moderate Fall Risk Current Medications: Current Medications Acetaminophen (Acetaminophen 325 Mg Tablet) 650 mg PO Q6H PRN PRN Reason: Fever OF 100.5 OR GREATER Acetaminophen/Butalbital/Caffeine (Butalb/Acetaminophen/Caffeine 1 Each Tablet) 1 each PO Q6H PRN PRN Reason: migraine headache Duloxetine HCl (Duloxetine Hcl 30 Mg Capsule.Dr) 30 mg PO DAILY [facility] Last Admin: 07/09/24 10:14 Dose: 30 mg Acetaminophen (Acetaminophen 1000 Mg/100 Ml) 1,000 mg in 100 mls @ 400 mls/hr IV Q6H PRN PRN Reason: Pain Promethazine HCl 25 mg/ Sodium (Chloride) 51 mls @ 200 mls/hr IV Q8H PRN PRN Reason: Nausea And Vomiting Last Infusion: 07/08/24 20:26 Dose: Infused Dextrose/Sodium Chloride (Dextrose 5%-0.45% Nacl Iv Soln) 1,000 mls @ 100 mls/hr IV CONT [facility] Last Admin: 07/09/24 10:15 Dose: Not Given Metronidazole (Metronidazole 500 Mg/100ml-Ns) 500 mg in 100 mls @ 100 mls/hr IV Q8H [facility] Last Admin: 07/09/24 12:16 Dose: 100 mls/hr Levofloxacin/Dextrose ([id number] 750 Mg/150 Ml) 750 mg in 150 mls @ 75 mls/hr IV Q24H [facility] Last Admin: 07/09/24 12:17 Dose: 75 mls/hr Metoclopramide HCl 5 mg/ (Sodium Chloride) 51 mls @ 200 mls/hr IVP Q8H [facility] Last Admin: 07/09/24 09:39 Dose: Not Given Ketorolac Tromethamine (Ketorolac 30 Mg/Ml Inj Vial) 15 mg IVP Q6H PRN PRN Reason: Moderate Pain SCALE 5-7 Stop: 07/10/24 20:58 Last Admin: 07/08/24 19:25 Dose: 15 mg Morphine Sulfate (Morphine Sulfate 2 Mg/Ml Cartridge) 2 mg IV Q4H PRN PRN Reason: Severe Pain SCALE 8-10 Last Admin: 07/09/24 01:13 Dose: 2 mg Non-Formulary Medication (Ipratropium [place]) 2 spray INH BID [facility] Non-Formulary Medication (Mometasone [Asmanex Hfa]) 1 puff INH DAILY [facility] Last Admin: 07/09/24 10:15 Dose: Not Given Ondansetron HCl (Ondansetron Hcl/Pf 4 Mg/2 Ml Vial) 4 mg INJ Q6H PRN PRN Reason: Nausea And Vomiting Last Admin: 07/07/24 15:35 Dose: 4 mg Pantoprazole Sodium (Pantoprazole Sodium 40 Mg Vial) 40 mg IVP DAILY [facility] Last Admin: 07/09/24 08:09 Dose: 40 mg Primidone (Primidone 50 Mg Tablet) 50 mg PO DAILY [facility] Last Admin: 07/09/24 10:15 Dose: 50 mg Sertraline HCl (Sertraline Hcl 50 Mg Tablet) 100 mg PO DAILY [facility] Last Admin: 07/09/24 10:14 Dose: 100 mg Temazepam (Temazepam 15 Mg Capsule) 30 mg PO NIGHTLY PRN PRN Reason: sleep Trazodone HCl (Trazodone Hcl 50 Mg Tablet) 50 mg PO BEDTIME [facility] Time Spent With Patient Time: Total time spent is greater than 50% in coordination of care (as documented) at patient's floor/unit and/or counseling patient:
[2024-07-09] MEDS: ACETAMINOPHEN 325 MG TABLET PO PRN (13:13)
[2024-07-09] MEDS: TRAZODONE HCL 50 MG TABLET PO SCH (20:04)
[2024-07-09] MEDS: FAMOTIDINE 20 MG TABLET PO SCH (20:04)
[2024-07-09] MEDS: [UNRECOGNIZED DRUG - REMARK] INH SCH (21:57)
[2024-07-10 06:05] LABS: Potassium 3.1 mmol/L (3.6-5.2)
[2024-07-10 06:43] LABS: Hematocrit 38.5 % (35.9-46.7); Mean Corpuscular Volume 89.6 fl (81.0-93.7); Platelet Count 272 K/uL (152-353); White Blood Count 10.8 K/uL (4.3-9.3)
[2024-07-10 06:44] LABS: Basophils #(Absolute) Auto 0.1 (0.0-0.1); Basophils%(Percent) Auto 0.5 (0.1-0.85); Eosinophils#(Absolute)Auto 0.5 (0.0-0.2); Granulocytes % - Auto 73.6 % (47.8-71.3); Granulocytes#(Absolute)- Auto 7.9 (2.3-6.0); Monocytes #(Absolute)- Auto 0.9 (1.1-3.1); Monocytes %(Percent)- Auto 8.2 % (3.6-9.8)
[2024-07-10 08:47] VITALS: BP 95/74; PULSE 87; RESP 19; TEMP 98.3
[2024-07-10] MEDS: POTASSIUM CHLORIDE 20 MEQ TAB.ER.PRT PO ONE (09:19)
[2024-07-10] MEDS: POTASSIUM CHLORIDE 20 MEQ TAB.ER.PRT ONE (09:21)
--- NOTE | 2024-07-10 09:45 | Discharge Summary ---
DS: Providers Provider Date of admission: 07/05/24 21:00 Primary care physician: Nithya Orourke NP DS: Diagnosis Discharge Diagnosis (1) Small bowel obstruction: (2) Pain: (3) Tremor: (4) Nausea & vomiting: Qualifiers: Vomiting type: unspecified Qualified Code(s): R11.2 - Nausea with vomiting, unspecified DS: Summary Hospital Course Hospital Course: Ms. Arias was admitted on 07/05/24 from the ED with complaint of abdominal pain. Work up showed elevated at 13 on admit. Potassium slightly low at 3.2. CT of abdoment was conducted and partial small bowel obstruction was found. NGT was inserted to LIS and continued until 07/08 as output and abdominal pain decreased. She was started on levaquin and flagyl for leukocytosis, reglan and lactulose for SBO. Pain resolved, patient was advanced to liquid, then regular diet. Leukocytosis began resolving by discharge. Patient discharged on 07/10/24 to follow up with PCP in 1 week Status at Discharge Functional status at discharge: independent ambulation Overall status at discharge: patient is back to baseline Time Spent with Patient Time attestation: Total time spent providing and/or coordinating discharge services:35 min Exam Constitutional: normal general appearance, no apparent distress, average body habitus, no limitations and alert Vital Signs - 24 hr 07/09/24 12:00 07/09/24 14:19 07/09/24 16:00 Temperature 98.6 F 99.1 F Pulse Rate [Brachi al] 89 90 Respiratory Rate 20 16 Blood Pressure [Le ft Arm] 122/65 116/71 Pulse Oximetry 96 96 Oxygen Delivery Me thod Room Air Room Air 07/09/24 19:38 07/10/24 00:00 07/10/24 03:59 Temperature 98.2 F 97.6 F 98.1 F Pulse Rate [Brachi al] 66 79 90 Respiratory Rate 16 19 18 Blood Pressure [Le ft Arm] 129/74 126/62 135/79 Pulse Oximetry 95 97 95 Oxygen Delivery Me thod Room Air Room Air Room Air 07/10/24 08:00 Temperature 98.3 F Pulse Rate [Brachi al] 87 Respiratory Rate 19 Blood Pressure [Le ft Arm] 95/74 Pulse Oximetry 95 Oxygen Delivery Me thod Room Air HENMT: normocephalic, head/scalp atraumatic, hearing grossly normal bilaterally, external ears normal, external nose normal, oral mucous membranes normal, oropharynx normal, dentition normal and gingiva normal Eyes: PERRL, EOMs intact bilaterally, conjunctivae normal, no scleral icterus, no papilledema, normal visual rocha by confrontation, alignment normal, periorbital findings normal and no nystagmus Neck/C-Spine: visual inspection normal, trachea midline, cervical spine nontender, cervical full ROM noted and supple Lymph: no lymphadenopathy noted and no lymphedema noted Chest: inspection of chest normal, inspection of breast(s) abnormal (deferred) and palpation of breast(s) abnormal (deferred) Respiratory: breath sounds equal bilaterally, normal respiratory effort, clear to auscultation bilaterally, no wheezes, no rales, no retractions, no use of accessory muscles and chest percussion normal Cardiovascular: normal heart rate noted, regular rhythm noted, no gallop, no rub, no murmur, no JVD, peripheral pulses 2+ throughout and no additional abnormal heart sounds Gastrointestinal: abdomen normal to inspection, abdomen soft to palpation, nontender to palpation, nontender to percussion, nondistended (mild distention), normoactive bowel sounds (hypoactive BS), no hepatosplenomegaly, no masses, no pulsatile mass, no ascites and normal rectal exam (deferred) Genitourinary: no CVA tenderness, bladder normal to palpation, vaginal abnormality noted (deferred) and cervical abnormality noted (deferred) deferred Back/Pelvis: spine normal to inspection Extremities: normal to inspection, normal to palpation, no tenderness, full ROM, no joint enlargement and no deformity 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: 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, no movement abnormality noted, no focal motor deficit noted, no sensory deficits noted, gait normal, speech normal, coordination normal, no pronator drift noted, no fasciculations noted and GCS normal Psychiatry: Mental Status Exam documented within this Exam's Psych section mental status grossly normal, oriented x3, thought process normal, cooperative, affect normal, psychomotor activity normal and memory normal Skin: skin color normal, no rash, no lesions, no ecchymosis noted, no wounds, no lacerations, skin turgor normal, no jaundice, no petechiae, no mottling, nails normal and no alopecia DS: Data Data Completed and Pending Labs on day of discharge: Labs from last 24 hours 07/10/24 05:20 WBC 10.8 H RBC 4.3 Hgb 12.9 Hct 38.5 MCV 89.6 MCH 30.0 MCHC 33.5 RDW 14.0 Plt Count 272 MPV 7.4 Gran % 73.6 H Lymph % (Auto) 12.7 L [place] % (Auto) 8.2 Eos % (Auto) 5.0 H Baso % (Auto) 0.5 Lymph # (Auto) 1.4 [place] # (Auto) 0.9 L Eos # (Auto) 0.5 H Baso # (Auto) 0.1 Absolute Gran (auto) 7.9 H Sodium 140 Potassium 3.1 L Chloride 102.0 Carbon Dioxide 30 Anion Gap 8.0 BUN 13 Creatinine 0.8 Estimated GFR 82.7 Glucose 135 H Calcium 8.7 Discharge Plan Discharge Disposition: Home, Self-Care Condition: Stable Discharge Medications: New metoclopramide HCl [Reglan] 5 mg tablet 5 mg PO Q8H Qty: 12 0RF levofloxacin 750 mg tablet 750 mg PO DAILY Qty: 5 0RF metronidazole 500 mg tablet 500 mg PO Q8H Qty: 15 0RF Continued trazodone 50 mg tablet 50 mg PO BEDTIME Patient Comments: TAKE 1 TABLET BY MOUTH ONCE DAILY FOR INSOMNIA ipratropium bromide 21 mcg (0.03 %) spray,non-aerosol 2 spray INTRANASAL BID Patient Comments: USE 2 SPRAY(S) IN EACH NOSTRIL TWICE DAILY temazepam 30 mg capsule 30 mg PO NIGHTLY PRN (Reason: sleep) Patient Comments: TAKE 1 CAPSULE BY MOUTH ONCE DAILY FOR INSOMNIA cholecalciferol (vitamin D3) 1,250 mcg (50,000 unit) capsule 50,000 unit PO Q7D Patient Comments: TAKE 1 CAPSULE BY MOUTH ONCE A WEEK FOR VITAMIN D DEF duloxetine 30 mg capsule,delayed release(DR/EC) 30 mg PO DAILY Patient Comments: TAKE 1 CAPSULE BY MOUTH ONCE DAILY FOR DEPRESSION AND ANXIETY omeprazole 40 mg capsule,delayed release(DR/EC) 40 mg PO DAILY Patient Comments: TAKE 1 CAPSULE BY MOUTH ONCE DAILY 30 MINUTES BEFORE MORNING MEAL primidone 50 mg tablet 50 mg PO DAILY Patient Comments: TAKE 1 TABLET BY MOUTH ONCE DAILY FOR TREMORS sertraline 100 mg tablet 100 mg PO DAILY Patient Comments: TAKE 1 TABLET BY MOUTH ONCE DAILY FOR ANXIETY AND DEPRESSION Asmanex HFA 200 mcg/actuation HFA aerosol inhaler 1 puff INHALATION DAILY Patient Comments: INHALE 1 PUFF BY MOUTH ONCE DAILY [id number] 50-325-40 mg tablet 1 tab PO Q6H PRN (Reason: migraine headache) Patient Comments: TAKE 1 TABLET BY MOUTH EVERY 6 TO 8 HOURS NEEDED FOR MIGRAINE HEADACHE Discharge Orders: Discharge Order (Routine); Ordered 07/10/24 Ordered By: Lance Delaney Activity: resume usual activities as tolerated Diet: advance to your usual diet Interventions: Discharge Assessment Last Done: 07/10/24 09:58 MED/SURG & ICU Observation Charge Sheet Last Done: 07/10/24 10:00 Patient Instructions: Bowel Obstruction (DC) Forms: Portal/Health Info Access Inst Follow-Ups: Nithya Orourke NP [Primary Care Provider] - Discharge Date/Time: 07/10/24 10:01
== END 2024-07-10 10:01 | disposition home or self-care (01) | DRG 389 ==
LOC: ED 17:12 → MS 17:12 → OBSVTOIN 21:00 → MS 21:30
PROVIDERS: ADMIT Nurse Practitioner Family; ATTEND Nurse Practitioner Family
DX: Z88.4 Allergy status to anesthetic agent; M81.0 Age-related osteoporosis without current pathological fracture; K21.9 Gastro-esophageal reflux disease without esophagitis; E86.0 Dehydration; E87.6 Hypokalemia; R73.9 Hyperglycemia, unspecified; K56.51 Intestinal adhesions [bands], with partial obstruction; E87.1 Hypo-osmolality and hyponatremia; E83.52 Hypercalcemia; Z88.8 Allergy status to other drugs, medicaments and biological substances; G43.909 Migraine, unspecified, not intractable, without status migrainosus; R25.1 Tremor, unspecified; J45.909 Unspecified asthma, uncomplicated; F32.A Depression, unspecified; Z88.0 Allergy status to penicillin